=== PATIENT | female | born 1990 | race American Indian/Alaskan Native ===

== ENCOUNTER 2018-01-07 06:17 | Emergency (ER) | payer MEDICAID ==
--- NOTE | 2018-01-07 07:01 | ED PDOC ---
Arrival/HPI - General Chief Complaint: ENT Problem Time Seen by Provider: 01/07/18 06:32 Historian: Patient, Other (significant other) - History of Present Illness Narrative History of Present Illness (Text): you were treated in the ED today for sore throat for 4 days with redness but otherwise without any change in voice/drooling/nausea/vomiting/headache/ dizziness/difficulty breathing/chest pain/abdomen pain/numbness/tingling/loss of limb function/pain with urination. able to swallow liquids but difficulty solids. 01/07/18 06:58 01/07/18 07:01 01/07/18 07:07 Time/Duration: Other (4 days) Symptom Onset: Gradual Symptom Course: Unchanged Quality: Aching Severity Level: 1 Activities at Onset: Rest Context: Sitting Past Medical History - Provider Review Nursing Documentation Reviewed: Yes - Travel History Have you recently traveled outside [place] w/in the past 3 mons?: No - Psychiatric Hx Substance Use: No - Surgical History Other/Comment: Liposuction - 2013 - Anesthesia Hx Anesthesia: Yes Hx Anesthesia Reactions: No Hx Malignant Hyperthermia: No Family/Social History - Physician Review Nursing Documentation Reviewed: Yes Family/Social History: No Known Family HX Smoking Status: Never Smoked Hx Alcohol Use: No Hx Substance Use: No Allergies/Home Meds Allergies/Adverse Reactions: Allergies No Known Allergies Allergy (Verified 01/07/18 06:25) Review of Systems - Review of Systems Constitutional: Normal Eyes: Normal ENT: Sore Throat Respiratory: Normal Cardiovascular: Normal Gastrointestinal: Normal Genitourinary Female: Normal Musculoskeletal: Normal Skin: Normal Neurological: Normal Endocrine: Normal Hemo/Lymphatic: Normal Psychiatric: Normal Physical Exam Vital Signs Reviewed: Yes Vital Signs Temp Pulse Resp BP Pulse Ox 01/07/18 06:40 98.0 F 74 18 128/82 99 01/07/18 06:25 98 F 74 18 128/82 99 Temperature: Febrile Blood Pressure: Hypertensive Pulse: Regular Respiratory Rate: Normal Appearance: Positive for: Well-Appearing, Non-Toxic, Comfortable Pain Distress: None Mental Status: Positive for: Alert and Oriented X 3 - Systems Exam Head: Present: Atraumatic, Normocephalic Pupils: Present: PERRL Extroacular Muscles: Present: EOMI Conjunctiva: Present: Normal Ears: Present: Normal Mouth: Present: Moist Mucous Membranes Pharnyx: Present: ERYTHEMA, Other (mild pharyngeal swelling wo fluctuance/ crepitis, no drooling, no inferior chin tenderness. no exudates.) Nose (External): Present: Atraumatic Nose (Internal): Present: Normal Inspection Neck: Present: Normal Range of Motion Respiratory/Chest: Present: Clear to Auscultation, Good Air Exchange Cardiovascular: Present: Regular Rate and Rhythm Abdomen: No: Tenderness, Distention, Normal Bowel Sounds, Peritoneal Signs, Rebound, Guarding, McBurney's Point Tender, Rovsing's Sign Present, Hernias, Feeding Tubes, Ostomy Tubes, Mass/Organomegaly, Scars, Other Back: Present: Normal Inspection Upper Extremity: Present: Normal Inspection Lower Extremity: Present: Normal Inspection Neurological: Present: GCS=15, CN II-XII Intact, Speech Normal, Motor Func Grossly Intact Psychiatric: Present: Alert, Oriented x 3, Normal Insight, Normal Concentration Medical Decision Making ED Course and Treatment: 01/07/18 07:05 you were treated in the ED today for sore throat for 4 days with redness but otherwise without any change in voice/drooling/nausea/vomiting/headache/ dizziness/difficulty breathing/chest pain/abdomen pain/numbness/tingling/loss of limb function/pain with urination. able to swallow liquids but difficulty solids. You were otherwise breathing easily, pink moist lips, smiling and talking with your significant other, good strength/sensation, alert/oriented, walking easily, clear lungs, no abdomen tenderness, mild back of throat redness but no white spots or back of throat pocket of infection, no fever temp 98, stable heart rate 74, stable breathing rate 18, excellent oxygen level 99% room air, elevated blood pressure 128/82 which we recommend repeat in 2-3 days primary care office to determine further treatment, urine test negative, you didn't want to wait for strep throat results and wanted treatment due to duration of symptoms thus dexamethasone, motrin and amoxacillin, observation done in the ED with improvement, counselled to gargle with salt water daily and thus discharged home with significant other. 1. Recommend tylenol or motrin as directed for pain control. 2. Recommend amoxacillin as directed for sore throat infection control. 3. Recommend follow-up primary care 2-3 days to review symptoms, referral to ear nose throat clinic. 4. If any worsening pain, fever, chills, nausea, vomiting, difficulty breathing, numbness , loss of limb function, pain with urination or any medical condition then return to the ED. Reassessment Condition: Improved - Medication Orders Current Medication Orders: Amoxicillin (Amoxil 500 Mg Cap) 1,000 mg PO STAT STA PRN Reason: Protocol Stop: 01/07/18 06:57 Dexamethasone (Decadron) 4 mg PO STAT STA Stop: 01/07/18 06:56 Ibuprofen (Motrin Oral Susp) 400 mg PO STAT STA Stop: 01/07/18 06:57 Disposition/Present on Arrival - Present on Arrival Any Indicators Present on Arrival: No History of DVT/PE: No History of Uncontrolled Diabetes: No Urinary Catheter: No History of Decub. Ulcer: No History Surgical Site Infection Following: None - Disposition Have Diagnosis and Disposition been Completed?: Yes Diagnosis: Pharyngitis Disposition: HOME/ ROUTINE Disposition Time: 07:04 Patient Plan: Discharge Condition: IMPROVED Discharge Instructions (ExitCare): Sore Throat in Adults Additional Instructions: you were treated in the ED today for sore throat for 4 days with redness but otherwise without any change in voice/drooling/nausea/vomiting/headache/ dizziness/difficulty breathing/chest pain/abdomen pain/numbness/tingling/loss of limb function/pain with urination. able to swallow liquids but difficulty solids. You were otherwise breathing easily, pink moist lips, smiling and talking with your significant other, good strength/sensation, alert/oriented, walking easily, clear lungs, no abdomen tenderness, mild back of throat redness but no white spots or back of throat pocket of infection, no fever temp 98, stable heart rate 74, stable breathing rate 18, excellent oxygen level 99% room air, elevated blood pressure 128/82 which we recommend repeat in 2-3 days primary care office to determine further treatment, urine test negative, you didn't want to wait for strep throat results and wanted treatment due to duration of symptoms thus dexamethasone, motrin and amoxacillin, observation done in the ED with improvement, counselled to gargle with salt water daily and thus discharged home with significant other. 1. Recommend tylenol or motrin as directed for pain control. 2. Recommend amoxacillin as directed for sore throat infection control. 3. Recommend follow-up primary care 2-3 days to review symptoms, referral to ear nose throat clinic. 4. If any worsening pain, fever, chills, nausea, vomiting, difficulty breathing, numbness , loss of limb function, pain with urination or any medical condition then return to the ED. Prescriptions: Amoxicillin [Amoxil 500 mg Cap] 500 mg PO Q12 10 Days #20 cap Referrals: Carmelita Garibay MD [Primary Care Provider] - Follow up with primary
[2018-01-07 07:11] VITALS: BP 120/72; PULSE 72; RESP 17; TEMP 98.2; O2SAT 100
== END 2018-01-07 07:11 | disposition home or self-care (01) ==
LOC: ED 06:17
DX: J02.9 Acute pharyngitis, unspecified (principal)
CPT/HCPCS: 87070; 87430; 99283; J8540

== ENCOUNTER 2018-11-11 07:06 | Emergency (ER) | payer MEDICAID ==
[2018-11-11 07:20] VITALS: BP 114/82; PULSE 75; RESP 18; TEMP 97.9; O2SAT 98
--- NOTE | 2018-11-11 07:38 | ED PDOC ---
Arrival/HPI - General Chief Complaint: Finger,Hand,&Wrist Time Seen by Provider: 11/11/18 07:26 Historian: Patient - History of Present Illness Time/Duration: Other (yesterday morning) Symptom Course: Unchanged Quality: Aching Severity Level: Moderate Activities at Onset: Sleeping Associated Symptoms (Text): 11/11/18 07:34 patient woke up yesterday morning with pain of her right middle finger. Numbness. No weakness. She denies any injury or trauma. No lifting. She has never experienced this previously. No swelling or skin changes. Patient is . LMP September 02. 5 para 0 abortions 4. She has pain with range of motion. Past Medical History - Psychiatric Hx Substance Use: No - Surgical History Other/Comment: Liposuction - 2012 - Anesthesia Hx Anesthesia: Yes Hx Anesthesia Reactions: No Hx Malignant Hyperthermia: No Family/Social History - Physician Review Nursing Documentation Reviewed: Yes Family/Social History: Unknown Family HX Smoking Status: Never Smoked Hx Alcohol Use: Yes Frequency of alcohol use: Socially Hx Substance Use: No Allergies/Home Meds Allergies/Adverse Reactions: Allergies No Known Allergies Allergy (Verified 11/11/18 07:14) Home Medications: Home Meds Medication Instructions Recorded Confirmed Multivitamin [Daily Multiple 1 tab PO DAILY 11/11/18 11/11/18 Vitamin] Review of Systems - Physician Review All systems were reviewed & negative as marked: Yes - Review of Systems Constitutional: Normal Gastrointestinal: Normal Genitourinary Female: Normal Musculoskeletal: absent: Back Pain, Neck Pain Physical Exam Vital Signs Temp Pulse Resp BP Pulse Ox 11/11/18 07:11 97.9 F 75 18 114/82 98 Temperature: Afebrile Blood Pressure: Normal Pulse: Regular Respiratory Rate: Normal Appearance: Positive for: Well-Appearing, Non-Toxic, Comfortable Pain Distress: None Mental Status: Positive for: Alert and Oriented X 3 - Systems Exam Upper Extremity: Present: Normal Inspection, Normal ROM, NORMAL PULSES, Tenderness, Neurovascularly Intact, Other (right volar middle finger no swelling or skin changes or limited range of motion. She does have some plus minus tenderness.). No: Edema, Swelling, Erythema, Deformity Medical Decision Making ED Course and Treatment: 11/11/18 07:36 discussed in detail with patient that this may represent early carpal tunnel syndrome as she is and woke up with symptoms. Negative Phalen and Tinel signs. No indication of Tinosynovitis. patient has full range of motion. Discussed with patient that x-rays were not indicated at this time especially in light of her new diagnosis of . She will be treated with a splint and Tylenol only. She is to follow-up with her PMD when she gets back home in [place]. Follow-up in the ER as needed. Disposition/Present on Arrival - Present on Arrival Any Indicators Present on Arrival: No History of DVT/PE: No History of Uncontrolled Diabetes: No Urinary Catheter: No History of Decub. Ulcer: No History Surgical Site Infection Following: None - Disposition Have Diagnosis and Disposition been Completed?: Yes Diagnosis: Carpal tunnel syndrome during Disposition: HOME/ ROUTINE Disposition Time: 07:39 Patient Plan: Discharge Condition: GOOD Discharge Instructions (ExitCare): Carpal Tunnel Syndrome Additional Instructions: Tylenol as directed on bottle. Rest elevation and ice. You may sleep with the splint also. Follow-up with PMD. Follow up in ER as needed.
== END 2018-11-11 08:21 | disposition home or self-care (01) ==
LOC: ED 07:06
DX: G56.01 Carpal tunnel syndrome, right upper limb (principal); O26.90 Pregnancy related conditions, unspecified, unspecified trimester; Z3A.00 Weeks of gestation of pregnancy not specified